=== PATIENT | male | born 1985 | race Caucasian/White ===

== ENCOUNTER 2024-05-29 11:08 | Emergency (ER) | payer SELFPAY ==
[2024-05-29 11:16] VITALS: BP 135/90; PULSE 86; RESP 16; TEMP 36.4; O2SAT 98
--- NOTE | 2024-05-29 12:06 | ED_ITS ---
HPI - Dental/Oral General: Chief complaint: Dental/Oral Stated complaint: Abcess in mouth Time Seen by Provider: 05/29/24 11:37 History of Present Illness: 38-year-old male presents emergency depa rtment chief complaint of significant dental pain and swelling to his upper mouth he does not endorse any difficulty breathing or shortness of breath or fever he endorses he tried to get set up with a dentist reports he has not several known bad teeth patient presents to the ER for further assessment and management Associated symptoms: Denies fever(s) Related Data Previous Rx's Medication Instructions Recorded clindamycin HCl 300 mg capsule 300 mg PO Q8H 7 days #21 caps 05/29/24 ketorolac 10 mg tablet 10 mg PO Q8H PRN pain 4 days #14 05/29/24 tabs lidocaine HCl 2 % mucosal solution 1 applic mucous membrane Q6H PRN 05/29/24 (Lidocaine Viscous) pain #300 mL Allergies Allergy/AdvReac Type Severity Reaction Status Date / Time Pertuciss vaccine Allergy Patient Uncoded 05/29/24 12:07 denied. Review of Systems General: Reports: 10 or more systems reviewed and unremarkable except in HPI and below Const: Denies: fever(s), chills, fatigue or malaise Eyes: Denies: change in vision or blurry vision ENMT: Reports: swelling of lips/tongue, oral sores and dental pain Card: Denies: chest pain or palpitations Resp: Denies: dyspnea or productive cough GI: Denies: abdominal pain, nausea or vomiting : Denies: flank pain Musc: Denies: extremity pain or extremity swelling Skin/Breast: Denies: rash or pruritus Neuro: Denies: headache(s) Psych: Denies: anxiety or depression Víctor/Lymph: Denies: easy bleeding All/Imm: Denies: urticaria, throat swelling or facial swelling Physical Exam Const: COMMON NORMALS: no acute distress, patient oriented x3 and healthy appearing HENMT: COMMON NORMALS: normocephalic and atraumatic HEAD & SCALP: normocephalic and atraumatic OTHER: Several decayed teeth with periapical abscesses appreciated noted to the left upper mouth no drainage appreciated with no stridor noted. Eye: COMMON NORMALS: Equal, round and reactive pupils present and EOMs intact bilaterally PUPIL: Yes Equal, round and reactive pupils present Neck/C-Spine: COMMON NORMALS: full ROM, supple and no JVD Lymph: LYMPHATIC: no lymphadenopathy noted Chest: COMMONS NORMALS: normal inspection of the chest and normal palpation of entire chest wall Resp: COMMON NORMALS: normal respiratory effort, No retractions and clear to auscultation bilaterally EFFORT & INSPECTION: Yes able to speak in complete sentences and Yes symmetric chest movement AUSCULTATION: clear to auscultation bilaterally Cardio: COMMON NORMALS: no JVD, regular rate and regular rhythm RATE: regular rate RHYTHM: regular rhythm GI: COMMON NORMALS: Normal to inspection, nondistended, normoactive bowel sounds present, Soft to palpation and non-tender INSPECTION: Yes normal to inspection PALPATION: Yes Soft to palpation : COMMON NORMALS: Yes no CVA tenderness BLADDER/KIDNEY EXAM: Yes no CVA tenderness Back/Pelvis: COMMON NORMALS: no CVA tenderness Extremity: COMMON NORMALS: normal to inspection and full ROM Neuro: COMMON NORMALS: patient oriented x3, CN's II-XII intact bilaterally, moves all extremities and no focal motor deficits Psych: COMMON NORMALS: mental status grossly normal, Normal thought process present, cooperative and normal affect THOUGHT PROCESS: Normal thought process present Skin: COMMON NORMALS: no rashes or lesions noted GENERAL SKIN EXAM: no rashes or lesions noted Course Vital Signs: Vital signs: Vital Signs Temperature 97.6 F 05/29/24 11:16 Pulse Rate 86 05/29/24 11:16 Respiratory Rate 16 05/29/24 11:16 Blood Pressure 135/90 05/29/24 11:16 Pulse Oximetry 98 05/29/24 11:16 Oxygen Delivery Me thod Room Air 05/29/24 11:16 [facility] - Dental/Oral Medical Decision Making Patient be started on some clindamycin advise prompt follow-up outpatient with dentistry he also will be provided a limited prescription of viscous lidocaine advised further follow-up as previously described in which patient advised return the interim if any of his symptoms persist or worse. No radiology studies performed this visit Discharge Plan Discharge Patient Disposition: Home Clinical Impression: Dental caries, Dental abscess Condition: Stable Prescriptions: New lidocaine HCl [Lidocaine Viscous] 2 % solution 1 applic mucous membrane Q6H PRN (Reason: pain) Qty: 300 0RF clindamycin HCl 300 mg capsule 300 mg PO Q8H 7 Days Qty: 21 0RF ketorolac 10 mg tablet 10 mg PO Q8H PRN (Reason: pain) 4 Days Qty: 14 0RF Discharge Orders: Discharge ED (Routine); Ordered 05/29/24 Ordered By: Jose Fischer Discharge Diet: Advance as tolerated Discharge Activity: Increase activity as tolerated Patient Instructions: Dental Abscess (ED) Activity Restrictions/Additional Instructions: Please further follow-up with your dentist for further evaluation management of your dental abscesses please take medications as prescribed in which please return the interim if any of your symptoms persist or worse. Coding Level of Care Code ED [place]eder for Leslie Lara
[2024-05-29] MEDS: clindamycin 150 mg Capsule 300 MG PO (12:09)
[2024-05-29 12:10] VITALS: BP 135/93; PULSE 103; RESP 18; O2SAT 98
[2024-05-29 12:44] VITALS: BP 154/98; PULSE 82; O2SAT 98
== END 2024-05-29 12:45 | disposition home or self-care (01) ==
PROVIDERS: Emergency Provider Emergency Medicine
DX: K02.9 Dental caries, unspecified (principal); K04.7 Periapical abscess without sinus
CPT/HCPCS: 99283

== ENCOUNTER 2024-11-03 08:54 | Emergency (ER) | payer MEDICAID, SELFPAY ==
[2024-11-03 09:01] VITALS: BP 139/87; PULSE 77; RESP 17; TEMP 36.6; O2SAT 99; BMI 29.0
--- NOTE | 2024-11-03 09:44 | ED_ITS ---
HPI - Ear Problem General: Chief complaint: Ear Stated complaint: fluid draining left ear Time Seen by Provider: 11/03/24 09:13 History of Present Illness: 39-year-old male presents emergency room complaining of left ear pain with drainage. Symptoms began yesterday with pain and then this morning began to have drainage from the left ear. Has also had a mild cough. Associated symptoms: Reports ear or mastoid pain; Denies fever(s) or neck pain Related Data Home Medications ?Medication ?Instructions ?Recorded ?Confirmed aripiprazole 5 mg tablet 5 mg PO DAILY 11/03/2411/03 bupropion HCl 150 mg tablet,12 hr 1 mg PO BID 11/03/24 11/03/24 sustained-release ibuprofen 200 mg tablet (Advil) 800 mg PO Q6H PRN Feve r Or Pain 11/03/24 11/03/24 Previous Rx's ?Medication ?Instructions ?Recorded amoxicillin 875 mg tablet 875 mg PO BID #20 tabs 11/03 ciprofloxacin 0.2 %-hydrocortisone 3 drp otic (ear) BI D 7 days #10 mL 11/03/24 1 % ear drops,suspension (Cipro HC) Allergies Allergy/AdvReac Type Severity Reaction Status Date / Time Pertussis Vaccines Allergy Unknown Verified 11/03/24 09:05 Review of Systems Const: Denies: fever(s) or chills ENMT: Reports: ear or mastoid pain and ear discharge; Denies: throat pain Card: Denies: chest pain Resp: Denies: dyspnea GI: Denies: abdominal pain : Denies: dysuria, urinary frequency or urinary urgency Musc: Denies: neck pain or back pain Skin/Breast: Denies: rash Physical Exam Const: COMMON NORMALS: no acute distress GENERAL APPEARANCE: cooperative and comfortable ORIENTATION/CONSCIOUSNESS: Yes awake, Yes oriented to person, Yes oriented to place and Yes oriented to time HENMT: COMMON NORMALS: normocephalic, atraumatic and hearing grossly normal bilaterally HEAD & SCALP: normocephalic and atraumatic TYMPANIC MEMBRANE: TM abnormal TM laterality: bilateral (Redness and erythema with perforation on the left with drainage) Resp: COMMON NORMALS: normal respiratory effort, No retractions, No use of accessory muscles and clear to auscultation bilaterally AUSCULTATION: clear to auscultation bilaterally Cardio: COMMON NORMALS: regular rate, regular rhythm and No murmurs present (Cardio) RATE: regular rate RHYTHM: regular rhythm Extremity: COMMON NORMALS: normal to inspection, capillary refill normal, no clubbing, cyanosis or edema, no calf tenderness and no pedal edema Neuro: SENSORIUM/ORIENTATION: Yes oriented to person, Yes oriented to place and Yes oriented to time Skin: COMMON NORMALS: no rashes or lesions noted GENERAL SKIN EXAM: no rashes or lesions noted Course Vital Signs: Vital signs: Vital Signs Temperature 97.8 F 11/03/24 09:01 Pulse Rate 82 11/03/24 09:49 Respiratory Rate 17 11/03/24 09:01 Blood Pressure 136/74 11/03/24 09:49 Pulse Oximetry 98 11/03/24 09:49 Oxygen Delivery Me thod Room Air 11/03/24 09:01 MDM - Ear Medical Decision Making Start amoxicillin 875 twice daily 10 days. Also start Cipro Dex suspension drops 3 drops in the left ear twice a day if he started to have drainage from the right ear should also have the drops in the right ear. Follow-up with primary care in 10 to 14 days No radiology studies performed this visit Discharge Plan Discharge Patient Disposition: Home Clinical Impression: Otitis media Qualifiers: Otitis media type: suppurative Chronicity: acute Laterality: bilateral Spon taneous tympanic membrane rupture: with spontaneous rupture Condition: Stable Prescriptions: New amoxicillin 875 mg tablet 875 mg PO BID Qty: 20 0RF Cipro HC 0.2-1 % drops,suspension 3 drp otic (ear) BID 7 Days Qty: 10 0RF No Action bupropion HCl 150 mg tablet sustained-release 12 hr 1 mg PO BID ibuprofen [Advil] 200 mg Tablet 800 mg PO Q6H PRN (Reason: Fever Or Pain) aripiprazole 5 mg tablet 5 mg PO DAILY Discharge Orders: Discharge ED (Routine); Ordered 11/03/24 Ordered By: Kennedy Veras Discharge Diet: Usual diet Discharge Activity: Resume usual activity Patient Instructions: Otitis Media - Adult, Opioid Safety, Pain Management Activity Restrictions/Additional Instructions: Thank you for choosing [facility] for your healthcare needs today. It is very important that you follow up as instructed or that you return to the Emergency Department should you have concerns or if your condition changes or worsens in any way. You were seen in the emergency room with complaints of left ear pain on exam both eardrums appear to be infected. Will start you on oral antibiotics 1 pill twice a day for 10 days. In addition to this he would reported drainage from the left ear. Should use the antibiotic drops in the left ear 3 drops twice a day. If you start to experience drainage from the right ear begin to use the drops in that ear as well. 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
[2024-11-03 09:49] VITALS: BP 136/74; PULSE 82; O2SAT 98
== END 2024-11-03 09:50 | disposition home or self-care (01) ==
PROVIDERS: Emergency Provider Family Medicine
DX: H66.012 Acute suppurative otitis media with spontaneous rupture of ear drum, left ear (principal)
CPT/HCPCS: 99283